=== PATIENT | female | born 1965 | race Caucasian/White ===

== ENCOUNTER → 2018-02-18 | Outpatient (CLI) | payer OTHER ==
[~2018-02-18] MED LIST: PROC10 PO; SERT50 PO; TOPI100 PO; VERA100 PO
== END ==
LOC: LAB SHORT 13:19 → LAB EV 13:19
DX: R00.0 Tachycardia, unspecified (principal)
CPT/HCPCS: 84484

== ENCOUNTER → 2018-07-24 | Outpatient (CLI) | payer OTHER ==
[2018-07-24 09:56] LABS: BASOPHILS ABSOLUTE AUTO 0.05 K/mm3 (0.00-0.23); BASOPHILS PERCENT AUTO 1 % (0-2); EOSINOPHILS ABSOLUTE AUTO 0.18 K/mm3 (0.00-0.68); EOSINOPHILS PERCENT AUTO 2 % (0-6); Hematocrit 44.2 % (33.0-51.0); Hemoglobin 14.1 g/dL (11.5-16.0); IMMATURE GRAN ABSOLUTE AUTO 0.03 K/mm3 (0.00-0.10); IMMATURE GRAN PERCENT AUTO 0 % (0-1); LYMPHOCYTES ABSOLUTE AUTO 4.42 K/mm3 (0.84-5.20); LYMPHOCYTES PERCENT AUTO 46 % (21-46); MONOCYTES ABSOLUTE AUTO 0.66 K/mm3 (0.16-1.47); MONOCYTES PERCENT AUTO 7 % (4-13); Mean Corpuscular HGB Conc 31.9 g/dL (31.5-36.5); Mean Corpuscular Volume 85 fL (80-100); Mean Platelet Volume 9.5 fL (9.1-12.4); NEUTROPHILS ABSOLUTE AUTO 4.19 K/mm3 (1.96-9.15); NEUTROPHILS PERCENT AUTO 44 % (41-73); Platelet Count 485 K/mm3 (150-400); RDW Coefficient Variation 15.2 % (11.7-14.2); RDW Standard Deviation 46.2 fL (35.1-46.3); Red Blood Cell Count 5.22 M/mm3 (3.80-5.20); White Blood Cell Count 9.53 K/mm3 (4.00-11.30)
[2018-07-24 10:02] LABS: Bun/Creatinine Ratio 14.8 (12.0-20.0); Calcium, Blood 9.8 mg/dL (8.5-10.1); Creatinine, Blood 1.28 mg/dL (0.40-1.00)
== END | disposition home or self-care (01) ==
LOC: LAB SHORT 09:51 → LAB EV 09:51
PROVIDERS: Family Medicine
DX: I47.1 Supraventricular tachycardia (principal)
CPT/HCPCS: 80048; 85025

== ENCOUNTER 2018-08-10 18:04 | Emergency (ER) | payer OTHER ==
[~2018-08-10] VITALS: Ht 167.6 cm; Wt 108.9 kg
[~2018-08-10 18:04] MED LIST changes: -VERA100 PO; +Verapamil ER100 MG PO
[2018-08-10] MEDS ORDERED: ZOLP5 PO (18:29)
[2018-08-10] MEDS ORDERED: Imitrex100 MG PO (18:29)
[2018-08-10] MEDS ORDERED: DILT60ER PO (18:31)
[2018-08-10] MEDS ORDERED: ALPR1 PO (18:32)
[2018-08-10] MEDS ORDERED: BUPR100 PO (18:32)
[2018-08-10] MEDS ORDERED: MELO7.5 PO (18:33)
[2018-08-10] MEDS ORDERED: SERT100 PO (18:33)
[2018-08-10 18:43] LABS: BASOPHILS ABSOLUTE AUTO 0.07 K/mm3 (0.00-0.23); BASOPHILS PERCENT AUTO 0 % (0-2); EOSINOPHILS ABSOLUTE AUTO 0.14 K/mm3 (0.00-0.68); EOSINOPHILS PERCENT AUTO 1 % (0-6); Hematocrit 45.1 % (33.0-51.0); Hemoglobin 14.2 g/dL (11.5-16.0); IMMATURE GRAN ABSOLUTE AUTO 0.06 K/mm3 (0.00-0.10); IMMATURE GRAN PERCENT AUTO 0 % (0-1); LYMPHOCYTES ABSOLUTE AUTO 5.98 K/mm3 (0.84-5.20); LYMPHOCYTES PERCENT AUTO 38 % (21-46); MONOCYTES ABSOLUTE AUTO 1.11 K/mm3 (0.16-1.47); MONOCYTES PERCENT AUTO 7 % (4-13); Mean Corpuscular HGB 26.8 pg (26.0-34.0); Mean Corpuscular HGB Conc 31.5 g/dL (31.5-36.5); Mean Corpuscular Volume 85 fL (80-100); Mean Platelet Volume 9.5 fL (9.1-12.4); NEUTROPHILS ABSOLUTE AUTO 8.57 K/mm3 (1.96-9.15); NEUTROPHILS PERCENT AUTO 54 % (41-73); Platelet Count 475 K/mm3 (150-400); RDW Coefficient Variation 14.7 % (11.7-14.2); RDW Standard Deviation 46.1 fL (35.1-46.3); Red Blood Cell Count 5.29 M/mm3 (3.80-5.20); White Blood Cell Count 15.93 K/mm3 (4.00-11.30)
[2018-08-10 19:06] LABS: U Amphetamine Screen Not Detected; U Barbituate Screen Not Detected; U Benzodiazapine Screen DETECTED; U Buprenorphine Screen Not Detected; U Cannabinoids Screen Not Detected; U Cocaine Screen Not Detected; U Methadone Screen Not Detected; U Methamphetamine Screen Not Detected; U Opiates Screen Not Detected; U Oxycodone Screen Not Detected; U Phencyclidine Screen Not Detected; U Propoxyphene Screen Not Detected
[2018-08-10 19:12] LABS: Thyroid Stimulating Hormone 3.35 uIU/mL (0.360-4.800)
[2018-08-10] MEDS ORDERED: SUMA25 PO (19:32)
[2018-08-10] MEDS ORDERED: ACYC400 PO (19:32)
[2018-08-10] MEDS ORDERED: OLME20 PO (19:32)
[2018-08-13] MEDS ORDERED: Imitrex100 MG PO (07:08)
[2018-08-13] MEDS ORDERED: DILT60ER PO (07:08)
[2018-08-13] MEDS ORDERED: AMLO5 PO (07:10)
[2018-08-13] MEDS ORDERED: VERA240ER (07:11)
[2018-08-13] MEDS ORDERED: MAGOXI400 PO (07:11)
[2018-08-14] MEDS ORDERED: ACET325 PO (10:55)
[2018-08-14] MEDS ORDERED: BENADRYL25 MG PO (10:55)
[2018-08-14] MEDS ORDERED: DELTASONE20 MG PO (10:56)
[2018-08-14] MEDS ORDERED: CLARITIN10 MG PO (10:56)
== END 2018-08-10 19:48 | disposition home or self-care (01) ==
LOC: ER 18:04
PROVIDERS: Emergency Medicine
DX: I47.1 Supraventricular tachycardia (principal); G43.909 Migraine, unspecified, not intractable, without status migrainosus; Z88.8 Allergy status to other drugs, medicaments and biological substances; Z79.899 Other long term (current) drug therapy
CPT/HCPCS: 36415; 84443; 84702; 85025; 93005; 93010; 96374; 99285-25; J0153; J7030

== ENCOUNTER 2018-08-18 20:15 | Emergency (ER) | payer OTHER ==
[~2018-08-18] VITALS: Ht 167.6 cm; Wt 108.9 kg
[~2018-08-18 20:15] MED LIST changes: +ACET325 PO; +ACYC400 PO; +ALPR1 PO; +AMLO5 PO; +BENADRYL25 MG PO; +BUPR100 PO; +CLARITIN10 MG PO; +DELTASONE20 MG PO; +DILT60ER PO; +Imitrex100 MG PO; +MAGOXI400 PO; +MELO7.5 PO; +OLME20 PO; +SERT100 PO; +SUMA25 PO; +VERA240ER; +ZOLP5 PO
[2018-08-18 21:06] LABS: BASOPHILS ABSOLUTE AUTO 0.05 K/mm3 (0.00-0.23); BASOPHILS PERCENT AUTO 0 % (0-2); EOSINOPHILS ABSOLUTE AUTO 0.23 K/mm3 (0.00-0.68); EOSINOPHILS PERCENT AUTO 2 % (0-6); Hemoglobin 14.3 g/dL (11.5-16.0); IMMATURE GRAN ABSOLUTE AUTO 0.04 K/mm3 (0.00-0.10); IMMATURE GRAN PERCENT AUTO 0 % (0-1); LYMPHOCYTES ABSOLUTE AUTO 5.07 K/mm3 (0.84-5.20); LYMPHOCYTES PERCENT AUTO 43 % (21-46); MONOCYTES ABSOLUTE AUTO 0.93 K/mm3 (0.16-1.47); MONOCYTES PERCENT AUTO 8 % (4-13); Mean Corpuscular HGB 27.3 pg (26.0-34.0); Mean Corpuscular HGB Conc 31.8 g/dL (31.5-36.5); Mean Corpuscular Volume 86 fL (80-100); Mean Platelet Volume 9.3 fL (9.1-12.4); NEUTROPHILS ABSOLUTE AUTO 5.55 K/mm3 (1.96-9.15); NEUTROPHILS PERCENT AUTO 47 % (41-73); Platelet Count 387 K/mm3 (150-400); RDW Coefficient Variation 15.1 % (11.7-14.2); RDW Standard Deviation 47.7 fL (35.1-46.3); Red Blood Cell Count 5.24 M/mm3 (3.80-5.20); White Blood Cell Count 11.87 K/mm3 (4.00-11.30)
[2018-08-18 21:46] LABS: Bilirubin, Total 0.3 mg/dL (0.1-1.0); Bun/Creatinine Ratio 21.7 (12.0-20.0); Creatinine, Blood 1.06 mg/dL (0.40-1.00); Globulin, Blood 3.9 g/dL (2.2-4.0); Potassium, Blood 4.1 mmol/L (3.5-5.5); Total Protein, Blood 7.9 g/dL (6.4-8.2)
== END 2018-08-18 22:45 | disposition left against medical advice (07) ==
LOC: ER 20:15
PROVIDERS: Physician Assistant
DX: R22.0 Localized swelling, mass and lump, head (principal); Z53.20 Procedure and treatment not carried out because of patient's decision for unspecified reasons
CPT/HCPCS: 36415; 80053; 85025; 96374; 96375; 99283-25; J1200; J2930

== ENCOUNTER → 2018-09-18 | Outpatient (CLI) | payer OTHER | LOC: LAB 14:52 → LAB SHORT 14:52 | PROVIDERS: Student in an Organized Health Care Education/Training Program | DX: Z12.4 Encounter for screening for malignant neoplasm of cervix (principal) | CPT/HCPCS: G0145 ==

== ENCOUNTER 2019-02-11 08:44 | Day surgery (SDC) | payer OTHER ==
[~2019-02-11] VITALS: Ht 167.6 cm; Wt 98.5 kg
[~2019-02-11 08:44] MED LIST changes: +ACYC800; +IBUP600; +Imitrex100 MG; +Voltaren100 GM
== END 2019-02-11 10:15 | disposition home or self-care (01) ==
LOC: ORSCSDS 08:44
PROVIDERS: Internal Medicine Gastroenterology
PROC: 0DJD8ZZ Inspection of Lower Intestinal Tract, Via Natural or Artificial Opening Endoscopic (ICD-10-PCS; principal; 2019-02-11 10:00)
DX: Z12.11 Encounter for screening for malignant neoplasm of colon (principal); Z80.0 Family history of malignant neoplasm of digestive organs; K57.30 Diverticulosis of large intestine without perforation or abscess without bleeding; K64.8 Other hemorrhoids; I10 Essential (primary) hypertension; Z87.891 Personal history of nicotine dependence
CPT/HCPCS: J2704; J7120

== ENCOUNTER → 2020-02-26 | Outpatient (CLI) | payer OTHER ==
[~2020-02-26] MED LIST changes: +Abilify2 MG PO; +Prednisone20 MG PO
== END | disposition home or self-care (01) ==
LOC: LAB SHORT 13:39
DX: N39.0 Urinary tract infection, site not specified (principal)
CPT/HCPCS: 87086

== ENCOUNTER 2020-04-26 04:16 | Emergency (ER) | payer OTHER, SELFPAY ==
[~2020-04-26] VITALS: Ht 162.6 cm; Wt 86.2 kg
[~2020-04-26 04:16] MED LIST changes: -Abilify2 MG PO; -Prednisone20 MG PO
[2020-04-26] MEDS ORDERED: Abilify2 MG PO (04:40)
[2020-04-26] MEDS ORDERED: TOPI100 PO (04:40)
[2020-04-26] MEDS ORDERED: Prednisone20 MG PO (05:34)
== END 2020-04-26 05:47 | disposition home or self-care (01) ==
LOC: ER 04:16
DX: T78.3XXA Angioneurotic edema, initial encounter (principal); T78.40XA Allergy, unspecified, initial encounter; R22.0 Localized swelling, mass and lump, head; Z88.5 Allergy status to narcotic agent; Z79.899 Other long term (current) drug therapy
CPT/HCPCS: 36415; 96374; 96375; 99283-25; J1200; J2930

== ENCOUNTER 2022-09-10 05:14 | Emergency (ER) | payer OTHER ==
[~2022-09-10] VITALS: Ht 165.1 cm; Wt 104.3 kg
[~2022-09-10 05:14] MED LIST changes: +Abilify2 MG PO; +Prednisone20 MG PO
[2022-09-10] MEDS ORDERED: BANOPHEN25 MG PO (09:06)
[2022-09-10] MEDS ORDERED: EPIPEN0.3 MG/0.3 IM (09:06)
[2022-09-10] MEDS ORDERED: FAMO40 PO (09:06)
[2022-09-10] MEDS ORDERED: DELTASONE20 MG PO (09:06)
[2022-09-10 09:17] VITALS: BP 113/80
== END 2022-09-10 09:18 | disposition home or self-care (01) ==
LOC: ER 05:14
DX: T78.3XXA Angioneurotic edema, initial encounter (principal); Z88.8 Allergy status to other drugs, medicaments and biological substances; Z88.5 Allergy status to narcotic agent; Z79.899 Other long term (current) drug therapy; G43.909 Migraine, unspecified, not intractable, without status migrainosus; I10 Essential (primary) hypertension
CPT/HCPCS: 96372-59; 96374; 96375; 99284-25; J0171; J1200; J2930

== ENCOUNTER 2023-12-05 08:35 | Day surgery (SDC) | payer BC ==
[~2023-12-05] VITALS: Ht 165.1 cm; Wt 102.6 kg
[~2023-12-05 08:35] MED LIST changes: +ALPRAZOLAM110 PO; +AMLO10 PO; -AMLO5 PO; +BANOPHEN25 MG PO; +EPIPEN0.3 MG/0.3 IM; +FAMO40 PO; +FURO20 PO; +MIRT30 PO; +POTA10T PO; +Prednisone10 MG PO; +UBRELVY50 MG PO
[2023-12-05] MEDS ORDERED: Lactated Ringer's 1,000 ML IV ONE ×2 (08:37→09:49)
[2023-12-05] MEDS ORDERED: propofoL 50 ML IV ONE ×2 (08:37→10:30)
[2023-12-05] MEDS ORDERED: MIRT15 (09:28)
[2023-12-05] MEDS ORDERED: Amlodipine Bes2.5 MG (09:29)
[2023-12-05] MEDS ORDERED: MELO7.5 (09:40)
[2023-12-05] MEDS ORDERED: ACYC400 (09:40)
[2023-12-05] MEDS ORDERED: SERT100 (09:41)
[2023-12-05] MEDS ORDERED: TROKENDI (09:41)
[2023-12-05] MEDS ORDERED: PANT40 (09:41)
[2023-12-05 11:23] VITALS: BP 125/93
== END 2023-12-05 11:23 | disposition home or self-care (01) ==
LOC: ORSCSDS 08:35
PROVIDERS: Internal Medicine Gastroenterology
PROC: 0DB58ZX Excision of Esophagus, Via Natural or Artificial Opening Endoscopic, Diagnostic (ICD-10-PCS; principal; 2023-12-05 10:00)
PROC: 0DJD8ZZ Inspection of Lower Intestinal Tract, Via Natural or Artificial Opening Endoscopic (ICD-10-PCS; principal; 2023-12-05 10:00)
DX: Z12.11 Encounter for screening for malignant neoplasm of colon (principal); Z80.0 Family history of malignant neoplasm of digestive organs; K57.30 Diverticulosis of large intestine without perforation or abscess without bleeding; E78.5 Hyperlipidemia, unspecified; I10 Essential (primary) hypertension; Z79.899 Other long term (current) drug therapy
CPT/HCPCS: 43239; G0105; 88305; J2704; J7120

== ENCOUNTER → 2024-02-11 | Outpatient (CLI) | payer OTHER ==
[~2024-02-11] MED LIST changes: +ACYC400; +Amlodipine Bes2.5 MG; +MELO7.5; +MIRT15; +PANT40; +SERT100; +TROKENDI
[2024-02-19 13:18] LABS: HPV HIGH RISK BY TMA Not Detected; HPV SOURCE Cervical
== END | disposition home or self-care (01) ==
LOC: LAB SHORT 14:02 → LAB 14:02
PROVIDERS: Advanced Practice Midwife
DX: Z01.419 Encounter for gynecological examination (general) (routine) without abnormal findings (principal)
CPT/HCPCS: 87624; G0123